=== PATIENT | female | born 1960 | race Caucasian/White ===

== ENCOUNTER 2020-03-18 10:50 | Emergency (ER) | payer OTHER ==
[2020-03-18] MEDS ORDERED: Ketorolac 60 MG/2 ML SDV IM ONE (11:29)
[2020-03-18] MEDS ORDERED: Cyclobenzaprine 10 MG Tab PO ONE (11:31)
--- NOTE | 2020-03-18 11:38 | EDM.PDOC ---
ED HPI GENERAL MEDICAL PROBLEM - General Chief Complaint: ENT Problem Stated Complaint: PAIN IN L SIDE OF THE NECK Time Seen by Provider: 03/18/20 11:04 Source of Information: Reports: Patient History Limitations: Reports: No Limitations - History of Present Illness INITIAL COMMENTS - FREE TEXT/NARRATIVE: 59 yo female presents with severe, shock like pain in left jaw and ear. Pain started at 0300 this AM waking her from sleep it has continues worsening throughout the day. She does have a hx of TMJ. Stress was high last week but has been less this week. Denies nasal congestion, or sore throat. afebrile. - Related Data Allergies Allergy/AdvReac Type Severity Reaction Status Date / Time Sulfa (Sulfonamide Allergy Cannot Verified 03/18/20 11:04 Antibiotics) Remember Home Meds: Home Meds NK [No Known Home Meds] 03/18/20 [History] Past Medical History Gastrointestinal History: Reports: Diverticulosis Social & Family History - Tobacco Use Smoking Status *Q: Never Smoker ED ROS ENT - Review of Systems Review Of Systems: See Below Constitutional: Denies: Fever, Chills HEENT: Reports: Other (jaw pain) Respiratory: Denies: Shortness of Breath, Wheezing Cardiovascular: Denies: Chest Pain ED EXAM, ENT - Physical Exam Exam: See Below Exam Limited By: No Limitations General Appearance: Alert, WD/WN, Mild Distress Eye Exam: Bilateral Eye: PERRL Ears: Normal External Exam, Normal Canal, Hearing Grossly Normal, Normal TMs Nose: Normal Inspection, Normal Mucousa, No Blood Mouth/Throat: Other (severe pain on palpation of left TMJ). No: Dental Pain, Pharyngeal Erythema, Throat Pain, Throat Swelling Head: Atraumatic, Normocephalic Neck: Normal Inspection, Supple, Non-Tender, Full Range of Motion. No: Lymphadenopathy (R), Lymphadenopathy (L) Respiratory/Chest: No Respiratory Distress, Lungs Clear, Normal Breath Sounds. No: Crackles, Rhonchi, Wheezing Cardiovascular: Regular Rate, Rhythm, No Murmur Skin: Warm, Dry, Intact Course - Vital Signs Last Recorded V/S: Last Vital Signs Temp 37.1 C 03/18/20 11:13 Pulse 70 03/18/20 11:13 Resp 14 03/18/20 11:13 BP 83/54 L 03/18/20 11:13 Pulse Ox 97 03/18/20 11:13 - Orders/Labs/Meds Labs: Laboratory Tests 03/18/20 03/18/20 Range/Units 12:40 12:40 WBC 4.9 (4.5-11.0) K/uL RBC 4.45 (3.30-5.50) M/uL Hgb 12.7 (12.0-15.0) g/dL Hct 39.5 (36.0-48.0) % MCV 89 (80-98) fL MCH 29 (27-31) pg MCHC 32 (32-36) % Plt Count 200 (150-400) K/uL Neut % (Auto) 63 (36-66) % Lymph % (Auto) 23 L (24-44) % [place] % (Auto) 12 H (2-6) % Eos % (Auto) 2 (2-4) % Baso % (Auto) 0 (0-1) % C-Reactive Protein < 0.05 (0.0-0.3) mg/dL Meds: Medications Discontinued Medications Generic Name Dose Route Start Last Admin Trade Name Freq PRN Reason Stop Dose Admin Carbamazepine 200 mg 03/18/20 12:59 03/18/20 13:06 Tegretol Tab PO 03/18/20 13:00 200 mg ONETIME ONE Administration Cyclobenzaprine HCl 10 mg 03/18/20 11:31 03/18/20 11:36 Flexeril PO 03/18/20 11:32 10 mg ONETIME ONE Administration Ketorolac Tromethamine 60 mg 03/18/20 11:29 03/18/20 11:37 Toradol IM 03/18/20 11:30 60 mg ONETIME ONE Administration Ondansetron HCl 4 mg 03/18/20 12:35 03/18/20 13:06 Zofran Odt PO 03/18/20 12:36 4 mg ONETIME ONE Administration Oxycodone/Acetaminophen 1 tab 03/18/20 12:31 03/18/20 13:06 Percocet 325-5 Mg PO 1 tab ONETIME PRN Administration Pain - Re-Assessments/Exams Free Text/Narrative Re-Assessment/Exam: 03/18/20 14:03 shocking intermittent pain improved but did not resolve with tx of NSAID, muscle relaxant and percocet. TMJ syndrome vs trigeminal neuralgia. pt has been having TMJ adjustment by chiropractor Departure - Departure Time of Disposition: 14:01 Disposition: Home, Self-Care 01 Condition: Fair Clinical Impression: Trigeminal neuralgia of left side of face, TMJ arthritis - Discharge Information *PRESCRIPTION DRUG MONITORING PROGRAM REVIEWED*: Not Applicable *COPY OF PRESCRIPTION DRUG MONITORING REPORT IN PATIENT [place]: Not Applicable Instructions: Temporomandibular Joint Syndrome Referrals: PCP,None [Primary Care Provider] - Forms: ED Department Discharge Additional Instructions: tegretol 200 mg twice daily until after follow-up naproxen scheduled twice daily avoid chewy foods Percocet for sever pain follow-up within the week with your primary care provider Sepsis Event Note (ED) - Evaluation Sepsis Screening Result: No Definite Risk - Focused Exam Vital Signs: Vital Signs Temp Pulse Resp BP Pulse Ox 03/18/20 11:13 37.1 C 70 14 83/54 L 97
[2020-03-18] MEDS ORDERED: Acetaminophen/oxyCODONE 325-5 MG Tab PO PRN (12:31)
[2020-03-18] MEDS ORDERED: Ondansetron 4 MG Tab.DIS PO ONE (12:35)
[2020-03-18] MEDS ORDERED: carBAMazepine 200 MG Tab PO ONE (12:59)
== END 2020-03-18 14:15 | disposition home or self-care (01) ==
LOC: JP.ED 10:50
DX: G50.0 Trigeminal neuralgia (principal); M26.69 Other specified disorders of temporomandibular joint; Z88.2 Allergy status to sulfonamides
CPT/HCPCS: 36415; 85025; 86140; 96372; 99283; A9270; J1885